=== PATIENT | female | born 2000 | race Caucasian/White ===

== ENCOUNTER 2021-04-19 01:51 | Emergency (ER) | payer SELFPAY ==
[~2021-04-19 01:51] MED LIST: ANTIVERT 25MG T25 MG PO
[2021-04-19] MEDS ORDERED: LOTRIMIN CREAM45 GM TOP (02:05)
== END 2021-04-19 02:08 | disposition home or self-care (01) ==
LOC: ER1 01:51
DX: B35.2 Tinea manuum (principal)
CPT/HCPCS: 99282

== ENCOUNTER 2021-11-17 23:32 | Emergency (ER) | payer SELFPAY ==
[~2021-11-17 23:32] MED LIST changes: +LOTRIMIN CREAM45 GM TOP
[2021-11-18 03:36] LABS: BUN/CREATININE RATIO 17 (0-10)
[2021-11-18] MEDS ORDERED: ZYRTEC10 M3 PO (03:58)
[2021-11-18] MEDS ORDERED: PREDNISONE 20 M20 MG PO (03:58)
== END 2021-11-18 04:10 | disposition home or self-care (01) ==
LOC: ER1 23:32
PROVIDERS: Student in an Organized Health Care Education/Training Program
DX: L50.1 Idiopathic urticaria (principal)
CPT/HCPCS: 80053; 96372; 99283; J1100

== ENCOUNTER 2022-03-21 22:56 | Emergency (ER) | payer SELFPAY ==
[~2022-03-21 22:56] MED LIST changes: +PREDNISONE 20 M20 MG PO; +ZYRTEC10 M3 PO
[2022-03-21 23:12] LABS: HEMOGLOBIN 12.6 gm/dl (12.3-15.3); RED BLOOD COUNT 4.05 M/UL (4.00-5.10)
[2022-03-21 23:36] LABS: BUN/CREATININE RATIO 15 (0-10)
[2022-03-22] MEDS ORDERED: ZOFRAN ODT 4 MG4 MG SL (03:19)
[2022-03-22] MEDS ORDERED: HYDROCODON-ACE1 EAC4 PO (05:10)
== END 2022-03-22 05:20 | disposition home or self-care (01) ==
LOC: ER1 22:56
PROVIDERS: Physician Assistant Medical
DX: N83.292 Other ovarian cyst, left side (principal)
CPT/HCPCS: 80053; 81001; 84703; 85025; 99284; Q9967